=== PATIENT | female | born 1950 | race Caucasian/White ===

== ENCOUNTER 2020-02-06 06:00 | Outpatient (RCR) | payer MEDICARE, OTHER, SELFPAY | END 2020-02-16 23:59 | disposition home or self-care (01) | LOC: GPT 06:00 | PROVIDERS: PCP Family Medicine; Referring Provider Family Medicine; Visit Provider Family Medicine | DX: G56.90 Unspecified mononeuropathy of unspecified upper limb (principal) | CPT/HCPCS: 97032; 97162; 97530 ==

== ENCOUNTER 2020-02-17 06:00 | Outpatient (RCR) | payer MEDICARE, OTHER, SELFPAY | END 2020-03-17 23:59 | disposition home or self-care (01) | LOC: GPT 06:00 | PROVIDERS: PCP Family Medicine; Visit Provider Family Medicine | DX: G56.90 Unspecified mononeuropathy of unspecified upper limb (principal) | CPT/HCPCS: 97110; 97112; 97140; 97530; G0283 ==

== ENCOUNTER 2020-02-19 06:00 | Outpatient (RCR) | payer MEDICARE, OTHER, SELFPAY | END 2020-03-17 23:59 | disposition home or self-care (01) | LOC: GOT 06:00 | PROVIDERS: PCP Family Medicine; Referring Provider Family Medicine; Visit Provider Family Medicine | DX: G56.90 Unspecified mononeuropathy of unspecified upper limb (principal) | CPT/HCPCS: 97018; 97110; 97112; 97124; 97140; 97166; 97530; 97535 ==

== ENCOUNTER 2020-03-18 06:00 | Outpatient (RCR) | payer MEDICARE, OTHER, SELFPAY | END 2020-04-17 23:59 | disposition home or self-care (01) | LOC: GPT 06:00 | PROVIDERS: Family Provider Family Medicine; PCP Family Medicine; Visit Provider Family Medicine | DX: G56.90 Unspecified mononeuropathy of unspecified upper limb (principal) | CPT/HCPCS: 97110; 97140; 97530 ==

== ENCOUNTER 2020-03-18 06:00 | Outpatient (RCR) | payer MEDICARE, OTHER, SELFPAY | END 2020-04-17 23:59 | disposition home or self-care (01) | LOC: GOT 06:00 | PROVIDERS: Family Provider Family Medicine; PCP Family Medicine; Referring Provider Family Medicine; Visit Provider Family Medicine | DX: G56.90 Unspecified mononeuropathy of unspecified upper limb (principal) | CPT/HCPCS: 97018; 97110; 97112; 97140; 97530 ==